=== PATIENT | male | born 1950 | race Caucasian/White ===

== ENCOUNTER 2020-02-20 02:24 | Emergency (ER) | payer MEDICARE ==
--- NOTE | 2020-02-20 02:28 | EDM.PDOC ---
ED HPI GENERAL MEDICAL PROBLEM - General Chief Complaint: ENT Problem Stated Complaint: NOSE BLEED Time Seen by Provider: 02/20/20 02:33 - History of Present Illness INITIAL COMMENTS - FREE TEXT/NARRATIVE: 69-year-old male presents the emergency room with a nosebleed. Started earlier this evening. The patient cannot get it under control. He is tried stuffing Kleenex into his nose. Bleeding is been out of the right naris. Patient has a significant past history of heart valve surgery when he was 2 years old. He used to be treated for hypertension but has been off his medication apparently this was stopped in the past he had a single episode of gout in the past. Patient is not experiencing any chest pain chest pressure or other problems he has not had any nasal congestion or problems prior to this bloody nose. - Related Data Allergies Allergy/AdvReac Type Severity Reaction Status Date / Time No Known Allergies Allergy Verified 02/20/20 02:40 Home Meds: Home Meds hydrALAZINE [Apresoline] 25 mg PO Q8H #60 tab 02/20/20 [Rx] ED ROS ENT - Review of Systems Review Of Systems: See Below Constitutional: Reports: No Symptoms HEENT: Reports: Nosebleed Respiratory: Reports: No Symptoms Cardiovascular: Reports: No Symptoms Endocrine: Reports: No Symptoms GI/Abdominal: Reports: No Symptoms : Reports: No Symptoms Musculoskeletal: Reports: No Symptoms Neurological: Reports: No Symptoms ED EXAM, ENT - Physical Exam Exam: See Below Exam Limited By: No Limitations General Appearance: Alert, No Apparent Distress, Other (She has a active bloody nose out of the right naris his blood pressure is quite elevated) Eye Exam: Bilateral Eye: Normal Inspection Ears: Normal External Exam, Normal Canal, Hearing Grossly Normal, Normal TMs Nose: Other (Bleeding out of the right nose. The patient had his nose cleared of foreign debris and was allowed to blow his nose hard as he could a couple different times to clear the clots he had some bloody streaks anteriorly that were visualized but nothing that was actively bleeding.) Mouth/Throat: Normal Gums, Normal Lips, Other (He has some blood in the posterior pharynx does not appear to be actively bleeding at this time) Head: Atraumatic, Normocephalic Neck: Normal Inspection, Supple, Non-Tender. No: Lymphadenopathy (L), Lymphadenopathy (R) Respiratory/Chest: No Respiratory Distress, Lungs Clear, Normal Breath Sounds Cardiovascular: Regular Rate, Rhythm, No Edema, Systolic Murmur (3/6 holosystolic murmur patient states he has had this all his life) ED ENT PROCEDURES - Epistaxis Procedure Indication: Epistaxis, Uncontrolled Recent anticoagulants/antiplatlets: No Uncontrolled HTN: Yes Recent septal/nasal surgery: No Site of bleeding: Right Nare, Other (Certain of bleeding site) Clearing of clots: Patient Blew Nose Topical Meds: Other (Afrin) Ice pack to area: No Chemical cautery: Other (Nothing visualized to cauterize) Complications: No EKG INTERPRETATION EKG Date: 02/20/20 Rhythm: NSR [place]: Normal P-Wave: Present QRS: Normal ST-T: Other (Nonspecific nondiagnostic changes in the setting of no chest pain) QT: Normal Comparison: NA - No Prior EKG EKG Interpretation Comments: Abnormal EKG Course - Vital Signs Last Recorded V/S: Last Vital Signs Temp 36.4 C 02/20/20 02:35 Pulse 84 02/20/20 04:26 Resp 16 02/20/20 03:22 BP 177/106 H 02/20/20 04:26 Pulse Ox 95 02/20/20 03:22 - Orders/Labs/Meds Orders: Active Orders 24 hr Category Date Time Status EKG Documentation Completion [RC] STAT Care 02/20/20 02:46 Active Labs: Laboratory Tests 02/20/20 02/20/20 02/20/20 Range/Units 02:50 02:50 02:50 WBC 9.83 H (4.23-9.07) K/mm3 RBC 5.22 (4.63-6.08) M/mm3 Hgb 16.6 (13.7-17.5) gm/dl Hct 46.7 (40.1-51.0) % MCV 89.5 (79.0-92.2) fl MCH 31.8 (25.7-32.2) pg MCHC 35.5 (32.2-35.5) g/dl RDW Std Deviation 44.0 H (35.1-43.9) fL Plt Count 241 (163-337) K/mm3 MPV 10.5 (9.4-12.3) fl Neut % (Auto) 87.1 H (34.0-67.9) % Lymph % (Auto) 7.5 L (21.8-53.1) % [place] % (Auto) 4.6 L (5.3-12.2) % Eos % (Auto) 0.2 L (0.8-7.0) Baso % (Auto) 0.2 (0.1-1.2) % Neut # (Auto) 8.56 H (1.78-5.38) K/mm3 Lymph # (Auto) 0.74 L (1.32-3.57) K/mm3 [place] # (Auto) 0.45 (0.30-0.82) K/mm3 Eos # (Auto) 0.02 L (0.04-0.54) K/mm3 Baso # (Auto) 0.02 (0.01-0.08) K/mm3 Manual Slide Review Abnormal smear PT 10.8 (9.7-12.0) SECONDS INR 0.99 APTT 30 (22-31) SECONDS Sodium 139 (136-145) mEq/L Potassium 4.3 (3.5-5.1) mEq/L Chloride 105 (98-107) mEq/L Carbon Dioxide 23 (21-32) mEq/L Anion Gap 15.3 H (5-15) BUN 14 (7-18) mg/dL Creatinine 1.4 H (0.7-1.3) mg/dL Est Cr Clr Drug Dosing TNP Estimated GFR (MDRD) 50 (>60) mL/min BUN/Creatinine Ratio 10.0 L (14-18) Glucose 131 H (80-115) mg/dL Calcium 9.0 (8.5-10.1) mg/dL Total Bilirubin 2.1 H (0.2-1.0) mg/dL AST 20 (15-37) U/L ALT 19 (16-63) U/L Alkaline Phosphatase 98 (46-116) U/L Troponin I 0.023 (0.00-0.056) ng/mL Total Protein 7.6 (6.4-8.2) g/dl Albumin 4.3 (3.4-5.0) g/dl Globulin 3.3 gm/dL Albumin/Globulin Ratio 1.3 (1-2) Meds: Medications Discontinued Medications Generic Name Dose Route Start Last Admin Trade Name Freq PRN Reason Stop Dose Admin Hydralazine HCl 25 mg 02/20/20 05:37 Apresoline PO 02/20/20 05:38 ONETIME ONE Labetalol HCl 20 mg 02/20/20 02:45 02/20/20 02:56 Normodyne IVPUSH 02/20/20 02:46 4 ml ONETIME ONE Administration Protocol Metoprolol Tartrate 25 mg 02/20/20 04:05 02/20/20 04:26 Lopressor PO 02/20/20 04:06 25 mg ONETIME ONE Administration Oxymetazoline HCl 2 ml 02/20/20 02:36 02/20/20 04:26 Nasal Decongestant [place] AYE 02/20/20 02:37 2 spray ONETIME ONE Administration - Re-Assessments/Exams Free Text/Narrative Re-Assessment/Exam: 02/20/20 04:17 Patient's blood pressure was quite elevated which is difficult given the active acute epistaxis. He was given 20 mg of labetalol IV which lowered his pulse and his blood pressure. After watching this for little bit he was given 25 mg of p.o. Lopressor anticipating he is getting need p.o. medication as he goes home 02/20/20 05:41 Patient has minimal if any bleeding unfortunately his blood pressure and with a systolic in the 170s and he was doing pretty good now is having ever so light bleeding but his systolic went up to 209. The patient is fairly insistent on going home at this point. I tried to convince him to stay a little bit longer but he really must get going. We will give him 25 mg of hydralazine and a prescription to take 25 mg every 8 hours. He promises to return to the emergency room with any worsening symptoms or problems. 02/20/20 05:47 Prior to leaving I had the patient blow his nose 1 last time got out little bit of small cloudy material given 2 more puffs of Afrin. Again tried to convince the patient to stay but he really must get going according to the patient. Departure - Departure Time of Disposition: 05:46 Disposition: Home, Self-Care 01 Clinical Impression: Epistaxis, Hypertension, uncontrolled - Discharge Information Referrals: PCP,None [Primary Care Provider] - Forms: ED Department Discharge Additional Instructions: Return to the emergency room with any questions problems or worsening nosebleed. Take the hydralazine every 8 hours as needed to help control your blood pressure. Follow-up in the [facility] in 1 week for blood pressure check, sooner if needed. Sepsis Event Note - Focused Exam Vital Signs: Vital Signs Temp Pulse Pulse Resp BP BP Pulse Ox 02/20/20 04:26 84 177/106 H 02/20/20 03:22 76 16 157/90 H 95 02/20/20 02:35 36.4 C 116 H 16 205/123 H 97 Date Exam was Performed: 02/20/20 Time Exam was Performed: 05:41 - My Orders Last 24 Hours: My Active Orders 02/20/20 02:46 EKG Documentation Completion [RC] STAT - Assessment/Plan Last 24 Hours: My Active Orders 02/20/20 02:46 EKG Documentation Completion [RC] STAT
[2020-02-20] MEDS ORDERED: Oxymetazoline 0.05% Nasal Spray 30 ML Bottle NAS ONE (02:36)
[2020-02-20] MEDS ORDERED: Labetalol 100 MG/20 ML MDV IVPUSH ONE (02:45)
[2020-02-20] MEDS ORDERED: Metoprolol Tartrate 25 MG Tab PO ONE (04:05)
[2020-02-20] MEDS ORDERED: hydrALAZINE 25 MG Tab PO ONE (05:37)
== END 2020-02-20 05:47 | disposition home or self-care (01) ==
LOC: JD.ED 02:24
DX: R04.0 Epistaxis (principal); I10 Essential (primary) hypertension
CPT/HCPCS: 30901; 36415; 80053; 84484; 85025; 85610; 85730; 93005; 96374; 99283; A9270; J3490; 93010

== ENCOUNTER 2025-04-10 10:10 | Emergency (ER) | payer MEDICARE ==
[2025-04-10] MEDS ORDERED: Sodium Chloride 0.9% 10 ML Syringe FLUSH PRN (10:36)
[2025-04-10 10:59] LABS: BASOPHILS ABSOLUTE AUTO 0.0 K/mm3 (0.0-0.2); BASOPHILS PERCENT AUTO 0.2 % (0.0-1.0); EOSINOPHILS ABSOLUTE AUTO 0.0 K/mm3 (0.0-0.4); EOSINOPHILS PERCENT AUTO 0.2 % (0.0-6.0); IMMATURE GRAN ABSOLUTE AUTO 0.05 K/mm3 (0.00-0.05); IMMATURE GRAN PERCENT AUTO 0.6 % (0.0-0.4); LYMPHOCYTES ABSOLUTE AUTO 0.4 K/mm3 (1.0-4.8); LYMPHOCYTES PERCENT AUTO 4.4 % (24.0-44.0); MEAN PLATELET VOLUME 10.7 fl (9.4-12.4); MONOCYTES ABSOLUTE AUTO 0.5 K/mm3 (0.0-0.8); MONOCYTES PERCENT AUTO 6.0 % (0.0-8.0); NEUTROPHILS ABSOLUTE AUTO 7.7 K/mm3 (1.8-7.7); NEUTROPHILS PERCENT AUTO 88.6 % (41.0-71.0); NRBC ABSOLUTE 0.00 (0.00-0.02); NRBC PERCENT 0.0 % (0.0-0.2); PLATELET COUNT,PLT 187 K/mm3 (150-400); RED BLOOD CELL COUNT 3.92 M/mm3 (4.52-5.90); WHITE BLOOD CELL COUNT,WBC 8.68 K/mm3 (3.9-11.3)
[2025-04-10] MEDS: Furosemide 40 MG/4 ML VIAL IVPUSH ONE (11:34)
[2025-04-10 11:41] LABS: A/G RATIO 1.0 (1-2); ALANINE AMINOTRANSFERASE,ALT 52.0 U/L (16-63); ASPARTATE AMNIOTRANSFERASE,AST 36.0 U/L (15-37); BILIRUBIN TOTAL 3.3 mg/dL (0.2-1.0); BLOOD UREA NITROGEN,BUN 17.0 mg/dL (7-18); CARBON DIOXIDE,CO2 26.0 mEq/L (21-32); CHLORIDE,CL 102.0 mEq/L (98-107); CREATININE 1.4 mg/dL (0.7-1.3); EST CRCL DRUG DOSING (CG) 38.02 mL/min; ESTIMATED GFR 52.0 mL/min (>60); GLUCOSE RANDOM 114.0 mg/dL (70-99); POTASSIUM,K 4.0 mEq/L (3.5-5.1); PROTEIN TOTAL,TP 6.0 g/dl (6.4-8.2); SODIUM,NA 137.0 mEq/L (136-145)
[2025-04-10 11:50] LABS: TROPONIN I HIGH SENSITIVITY 188.0 pg/mL (<=76)
== END 2025-04-10 14:20 | disposition home or self-care (01) ==
LOC: JD.ED 10:10
DX: I50.9 Heart failure, unspecified (principal); Z79.899 Other long term (current) drug therapy
CPT/HCPCS: 36415; 71046; 80053; 83735; 83880; 84484; 85025; 93005; 93306; 96374; 99285; J1938; 93010; 99283

== ENCOUNTER 2025-05-07 09:53 | Emergency (ER) | payer MEDICARE ==
[2025-05-07] MEDS: Furosemide 40 MG/4 ML VIAL IVPUSH ONE (10:40)
[2025-05-07] MEDS: Sodium Chloride 0.9% 10 ML Syringe FLUSH PRN (10:42)
[2025-05-07 10:44] LABS: BASOPHILS PERCENT AUTO 0.1 % (0.0-1.0); EOSINOPHILS PERCENT AUTO 0.0 % (0.0-6.0); IMMATURE GRAN PERCENT AUTO 0.9 % (0.0-0.4); LYMPHOCYTES PERCENT AUTO 2.8 % (24.0-44.0); MEAN PLATELET VOLUME 11.8 fl (9.4-12.4); MONOCYTES PERCENT AUTO 6.5 % (0.0-8.0); NEUTROPHILS ABSOLUTE AUTO 15.7 K/mm3 (1.8-7.7); NEUTROPHILS PERCENT AUTO 89.7 % (41.0-71.0); NRBC PERCENT 0.2 % (0.0-0.2); PLATELET COUNT,PLT 198 K/mm3 (150-400); RED BLOOD CELL COUNT 3.81 M/mm3 (4.52-5.90); WHITE BLOOD CELL COUNT,WBC 17.45 K/mm3 (3.9-11.3)
[2025-05-07 10:45] LABS: BASOPHILS ABSOLUTE AUTO 0.0 K/mm3 (0.0-0.2); EOSINOPHILS ABSOLUTE AUTO 0.0 K/mm3 (0.0-0.4); IMMATURE GRAN ABSOLUTE AUTO 0.15 K/mm3 (0.00-0.05); LYMPHOCYTES ABSOLUTE AUTO 0.5 K/mm3 (1.0-4.8); MONOCYTES ABSOLUTE AUTO 1.1 K/mm3 (0.0-0.8); NRBC ABSOLUTE 0.03 (0.00-0.02)
[2025-05-07 11:17] LABS: A/G RATIO 0.9 (1-2); ASPARTATE AMNIOTRANSFERASE,AST 760.0 U/L (15-37); BILIRUBIN TOTAL 6.8 mg/dL (0.2-1.0); BLOOD UREA NITROGEN,BUN 78.0 mg/dL (7-18); CARBON DIOXIDE,CO2 20.0 mEq/L (21-32); CHLORIDE,CL 98.0 mEq/L (98-107); EST CRCL DRUG DOSING (CG) 14.86 mL/min; ESTIMATED GFR 17.0 mL/min (>60); GLUCOSE RANDOM 155.0 mg/dL (70-99); POTASSIUM,K 3.9 mEq/L (3.5-5.1); SODIUM,NA 138.0 mEq/L (136-145)
[2025-05-07 11:18] LABS: ALANINE AMINOTRANSFERASE,ALT 1144.0 U/L (16-63)
[2025-05-07 11:19] LABS: CREATININE 3.5 mg/dL (0.7-1.3); PROTEIN TOTAL,TP 6.8 g/dl (6.4-8.2); TROPONIN I HIGH SENSITIVITY 201.0 pg/mL (<=76)
[2025-05-07] MEDS ORDERED: Sodium Chloride 0.9% 10 ML Syringe FLUSH PRN (12:45)
[2025-05-07 13:16] LABS: APPEARANCE,URINE CLEAR (Clear); GLUCOSE,URINE NEGATIVE (Negative); OCCULT BLOOD,URINE NEGATIVE (Negative)
[2025-05-07 13:45] LABS: SQUAMOUS EPITHELIAL CELLS,UR 0-5 /hpf (0-5)
[2025-05-07 14:11] LABS: LACTIC ACID 4.8 mmol/L (0.4-2.0)
[2025-05-07 14:44] LABS: INR 1.7
[2025-05-07] MEDS: Lactated Ringers 1,000 ML IV SCH (17:28)
== END 2025-05-07 19:12 ==
LOC: JD.ED 09:53
DX: A41.9 Sepsis, unspecified organism (principal); R65.20 Severe sepsis without septic shock; N17.9 Acute kidney failure, unspecified; K80.10 Calculus of gallbladder with chronic cholecystitis without obstruction; I50.9 Heart failure, unspecified; N39.0 Urinary tract infection, site not specified; Z79.899 Other long term (current) drug therapy
CPT/HCPCS: 36415; 51702; 71045; 74176; 76705; 80053; 81001; 83605; 83735; 83880; 84484; 85025; 85610; 86140; 87040; 87086; 93005; 96361; 96365; 96375; 99285; J0696; J1938; J2543; J7030; J7120; 93010